=== PATIENT | male | born 1955 | race Caucasian/White ===

== ENCOUNTER 2019-02-13 09:39 | Emergency (ER) | payer MEDICARE ==
[~2019-02-13] VITALS: Ht 180.3 cm; Wt 138.2 kg
[~2019-02-13 09:39] MED LIST: AMARYL4 MG PO; BUMEX 1MG TA1 MG/TA1 PO; CEPHALEXIN500 M1 PO; COZAAR100 MG PO; GLUMETZA500 MG PO; HUMALOG100 U/ML SQ; K-DUR 2020 MEQ PO; LANTUS100 U/ML SC; NITROSTAT0.4 MG/TAB SL; NORCO 325 MG-51 TAB PO; PERCOCET 325 MG1 TA2 PO; TOPROL XL 50MG50 MG PO; VASOTEC 5MG5 MG/TAB PO; ZOCOR 20MG20 MG PO
[2019-02-13 09:46] VITALS: BP 108/59; TEMP 98.5
[2019-02-13] MEDS ORDERED: AMOXICILLIN 8751 TAB PO (09:58)
[2019-02-13 10:08] VITALS: PULSE 89
== END 2019-02-13 10:07 | disposition home or self-care (01) ==
LOC: COL.ER 09:39
DX: K02.9 Dental caries, unspecified (principal); K04.7 Periapical abscess without sinus; I10 Essential (primary) hypertension; E11.9 Type 2 diabetes mellitus without complications; Z79.4 Long term (current) use of insulin; Z86.73 Personal history of transient ischemic attack (TIA), and cerebral infarction without residual deficits

== ENCOUNTER 2019-11-20 09:38 | Emergency (ER) | payer MEDICARE ==
[~2019-11-20] VITALS: Ht 180.3 cm; Wt 134.1 kg
[~2019-11-20 09:38] MED LIST changes: +AMOXICILLIN 8751 TAB PO
[2019-11-20 09:45] VITALS: TEMP 97.5
[2019-11-20] MEDS ORDERED: AMOXICILLIN 8751 TAB PO (09:54)
[2019-11-20 10:02] VITALS: BP 115/73; PULSE 83
== END 2019-11-20 10:00 | disposition home or self-care (01) ==
LOC: COL.ER 09:38
DX: K02.9 Dental caries, unspecified (principal); E11.9 Type 2 diabetes mellitus without complications; I10 Essential (primary) hypertension; Z79.4 Long term (current) use of insulin; Z86.73 Personal history of transient ischemic attack (TIA), and cerebral infarction without residual deficits

== ENCOUNTER 2020-07-17 14:51 | Inpatient (IN) | payer MEDICARE ==
[~2020-07-17] VITALS: Ht 180.3 cm; Wt 139.4 kg
[~2020-07-17 14:51] MED LIST changes: -BUMEX 1MG TA1 MG/TA1 PO
[2020-07-17 15:43] LABS: BASO # 0.1 (0.0-0.2); BASO % 0.8 % (0.0-2.0); EOS # 0.1 (0.0-0.7); EOS % 1.2 % (0-4.0); GRAN # 7.2 (1.4-6.5); GRAN % 67.7 % (42.2-75.2); HEMATOCRIT 41.2 % (42.0-52.0); LYMPH # 1.9 (1.2-3.4); MEAN CELL VOLUME 90 fl (80.0-100.0); MEAN CORPUSCULAR HEMOGLOBIN 28 pg (27.0-31.0); MEAN CORPUSCULAR HGB CONC 32 g/dl (33.0-37.0); MEAN PLATELET VOLUME 12.1 fl (7.4-10.4); MONO # 1.3 (0.1-0.6); MONO % 11.9 % (1.7-9.3); PLATELET COUNT 183 K/mm3 (130-400); RED BLOOD COUNT 4.59 M/mm3 (4.20-5.60); REDCELL DISTRIBUTION WIDTH-CV 15.4 % (11.5-14.5)
[2020-07-17 15:48] LABS: ALBUMIN 3.8 gm/dL (3.5-5.0); BILIRUBIN,TOTAL 1.8 mg/dL (0.0-1.0); C-REACTIVE PROTEIN 3.4 mg/dL (0.0-0.9); CALCIUM 9.2 mg/dL (8.4-10.2); CREATININE, serum 1.64 (0.66-1.25); POTASSIUM 3.3 mmol/L (3.4-5.0); TOTAL PROTEIN 7.6 gm/dL (6.4-8.2)
[2020-07-17] MEDS ORDERED: LEVEMIR100 U/ML SQ (17:33)
[2020-07-17] MEDS ORDERED: NOVOLOG 100U100 U/M1 SQ (17:34)
[2020-07-17] MEDS ORDERED: LIPITOR 10MG10 MG PO (17:37)
[2020-07-17 17:55] VITALS: BP 92/55; PULSE 81; TEMP 98.3
--- NOTE | 2020-07-17 19:19 | NUR ---
Patient admitted from the ED for cellulitis in the LLE and GA. Report recieved from ABDIRASHID Williamson. Upon initial assessment normal S1 and S2 sounds present, lungs were clear to auscultation, pedal and radial pulses +2 equal bilaterally, patient A&O. No skin issues noted besides cellulitis located on LLE. Superficial wound measures 13" x 11". Patient does not currently report any pain or discomfort. Scheduled meds given. Patient was unable to swallow pottasium pills, stated that he didn't need them. Will be recieving K+ replacement via IV. Patient denies any further needs at this time. Bedside report given to ABDIRASHID Tony. Call light within reach.
--- NOTE | 2020-07-17 22:24 | NUR ---
Noted to have a bedside glucose of 93. Novolog held. Jason given-refused a snack states "I will be just fine without one, if I notice its dropping I will call." Call light in reach. Will monitor.
[2020-07-18] VITALS (7 sets, daily range): BP systolic 87–122; BP diastolic 53–87; PULSE 72–93; TEMP 97.3–98.6
--- NOTE | 2020-07-18 01:08 | NUR ---
IV INFILTRATED TO LEFT HAND, REMOVED. ELEVATED ON PILLOW. RESTART TO RIGHT HAND 20G. IV FLUIDS AND ANTIBOTICS RESTARTED.
--- NOTE | 2020-07-18 01:57 | NUR ---
2100- ASSESSMENT COMPLETE. IV INFILTRATED TO LT HAND , RESTART TO RT HAND. FLUIDS AND ANTIBOTICS CONTINUE. CELLULITIS TO LEFT ROSEN. C/O PAIN 10/14, OCYCODONE GIVEN. NEEDS MET.
--- NOTE | 2020-07-18 05:31 | NUR ---
RESTED THROUGH THE NIGHT WO INCIDENT. NEEDS MET.
[2020-07-18 07:06] LABS: HEMATOCRIT 43.4 % (42.0-52.0); HEMOGLOBIN 13.5 g/dl (13.5-18.0); MEAN CELL VOLUME 93 fl (80.0-100.0); MEAN CORPUSCULAR HEMOGLOBIN 29 pg (27.0-31.0); MEAN CORPUSCULAR HGB CONC 31 g/dl (33.0-37.0); MEAN PLATELET VOLUME 12.2 fl (7.4-10.4); PLATELET COUNT 188 K/mm3 (130-400); RED BLOOD COUNT 4.68 M/mm3 (4.20-5.60); REDCELL DISTRIBUTION WIDTH-CV 15.6 % (11.5-14.5)
[2020-07-18 07:20] LABS: CREATININE, serum 1.72 (0.66-1.25); MAGNESIUM 1.9 mg/dL (1.6-2.3)
[2020-07-18 07:27] LABS: POTASSIUM 2.8 mmol/L (3.4-5.0)
[2020-07-18 07:33] LABS: BAND 5 % (0-10); BURR CELLS 1+; LYMPHOCYTE 13 % (20.0-51.0); NEUTROPHILS 75 % (42.0-75.2)
[2020-07-18 07:34] LABS: PLATELET ESTIMATE NORMAL (NORMAL)
--- NOTE | 2020-07-18 08:00 | NUR ---
Shift assessment complete. A&Ox4. Heart RRR. Lungs CTA. 2+ edema to BLE, 1+ edema to left hand. Softball sized superfical lesion to left john, open to air. Wound bed pink and moist. Denies pain or other concerns at this time. Call light in reach. Continuing to monitor.
--- NOTE | 2020-07-18 10:03 | NUR ---
SW met with the patient to discuss discharge plan. The patient lives in [place] with his , Niharika (ph#[phone]). He reports independence with ADLs and does not have any DME. The patient's PCP is Dr. Haylee Reyes at the [facility] and he receives his medications from [facility]. He reports no difficulties obtaining his meds. The patient does not have a DPOA-HC in EMR, but he states that he does have one completed and that it designates his . He states that the document is at home. The patient plans to return home with his upon discharge. SW to follow as needed. *Discharge plan: home with *
--- NOTE | 2020-07-18 18:36 | NUR ---
Uneventful day. Showered independently this afternoon. Reports increased pain to left lower leg wound following assessment by . Minimal pain relief from PO oxycodone and tramadol, Mell SHOEMAKER notified. LLE placed in Unna boot per orders. K+ up to 4.1 this afternoon following replacement. Blood sugars stable since this AM. Report given to crepe machine operator RN.
[2020-07-19 04:35] VITALS: BP 96/75; PULSE 82; TEMP 97.7
[2020-07-19 04:53] LABS: BASO # 0.1 (0.0-0.2); BASO % 0.8 % (0.0-2.0); EOS # 0.1 (0.0-0.7); EOS % 1.2 % (0-4.0); GRAN # 7.2 (1.4-6.5); GRAN % 67.7 % (42.2-75.2); HEMATOCRIT 42.9 % (42.0-52.0); HEMOGLOBIN 13.2 g/dl (13.5-18.0); LYMPH # 1.8 (1.2-3.4); LYMPH % 16.5 % (20.0-51.0); MEAN CELL VOLUME 92 fl (80.0-100.0); MEAN CORPUSCULAR HEMOGLOBIN 28 pg (27.0-31.0); MEAN CORPUSCULAR HGB CONC 31 g/dl (33.0-37.0); MONO # 1.4 (0.1-0.6); MONO % 13.3 % (1.7-9.3); PLATELET COUNT 184 K/mm3 (130-400); RED BLOOD COUNT 4.67 M/mm3 (4.20-5.60)
[2020-07-19 05:08] LABS: ALBUMIN 3.5 gm/dL (3.5-5.0); CREATININE, serum 1.82 (0.66-1.25); MAGNESIUM 2.1 mg/dL (1.6-2.3); POTASSIUM 4.4 mmol/L (3.4-5.0); TOTAL PROTEIN 6.9 gm/dL (6.4-8.2)
--- NOTE | 2020-07-19 05:39 | NUR ---
RESTED THROUGH THE NIGHT WO INCIDENT. ROXICODONE WORKING FOR PAIN. NEEDS MET.
[2020-07-19 08:00] VITALS: BP 162/70; PULSE 68; TEMP 99.1
[2020-07-19 08:13] VITALS: BP 109/72; PULSE 85; TEMP 98.5
--- NOTE | 2020-07-19 08:16 | NUR ---
PT IS LAYING IN BED AT THIS TIME. STUDENT NURSE, REENA WILL BE ASSISTING WITH PATIENT CARE TODAY. THE PATIENT HAS MOMENTS OF INAPPROPRIATE BEHAVIOR. VERY SEXUAL IN NATURE, WANTING TO DISCUSS HIS ERECTILE DISFUNCTION. PATIENT STATES HE PREFERS TO BE NAKED, THIS RN ENCOURAGED THE USE OF A GOWN WHILE HE IS HERE. HIS PAIN IS A 9/10. PT DID ASK FOR ROXICODONE AND STATES THAT HE WOULD LIKE ME TO WRITE THE LAST GIVEN TIME ON THE BOARD SO HE CAN GET HIS PAIN MEDICATIONS "ON TIME". THERE ARE NO OTHER CONCERNS AT THIS TIME. CALL LIGHT WITHIN REACH.
[2020-07-19] MEDS ORDERED: DOXYCYCLINE HY100 MG PO (09:23)
[2020-07-19] MEDS ORDERED: ROXICODONE 55 MG/TAB PO (09:24)
[2020-07-19] MEDS ORDERED: ZOFRAN 4MG T4 MG/TAB PO (09:34)
--- NOTE | 2020-07-19 11:50 | NUR ---
Patient has been resting in bed since shift change. Upon entering the room patient was naked and requested a clean gown. Patient made a few sexually inappropriate comments regarding himself and his erectile dysfunction. Otherwise he was very cooperative with taking his medications. He did complain of pain in his left lower leg where the cellulitis is present.
[2020-07-19 11:52] VITALS: BP 102/62; PULSE 87; TEMP 98
--- NOTE | 2020-07-19 11:57 | NUR ---
PT'S BLOOD SUGAR IS CURRENTLY 60. WILL GIVE PATIENT SOME JUICE AND RECHECK. NO FURTHER CONCERNS AT THIS TIME.
--- NOTE | 2020-07-19 12:22 | NUR ---
PT DRESSED, AND READY FOR DISCHARGE. ANALYA CATINAOT RECEIVED FROM PHARMACY, WILL PUT UNNA BOOT ON, AND THEN CONTINUE WITH DISCHARGE. PT WILL CONTACT SON, AND WE WILL WALK HIM OUT. NO FURTHER CONCERNS AT THIS TIME.
== END 2020-07-19 16:00 | disposition home or self-care (01) | DRG 603 ==
LOC: COL.ER 14:51 → MEDICAL 16:23
PROVIDERS: Nurse Practitioner; Physician Assistant; ADMIT Internal Medicine
DX: L03.116 Cellulitis of left lower limb (principal); Z68.41 Body mass index [BMI] 40.0-44.9, adult; N17.9 Acute kidney failure, unspecified; L97.829 Non-pressure chronic ulcer of other part of left lower leg with unspecified severity; I83.028 Varicose veins of left lower extremity with ulcer other part of lower leg; E11.649 Type 2 diabetes mellitus with hypoglycemia without coma; E11.22 Type 2 diabetes mellitus with diabetic chronic kidney disease; I50.9 Heart failure, unspecified; I25.10 Atherosclerotic heart disease of native coronary artery without angina pectoris; E87.6 Hypokalemia; N18.9 Chronic kidney disease, unspecified; I25.2 Old myocardial infarction; E66.01 Morbid (severe) obesity due to excess calories; R52 Pain, unspecified; R53.81 Other malaise; Z79.4 Long term (current) use of insulin; Z79.891 Long term (current) use of opiate analgesic; Z86.73 Personal history of transient ischemic attack (TIA), and cerebral infarction without residual deficits; Z87.891 Personal history of nicotine dependence; Z88.8 Allergy status to other drugs, medicaments and biological substances
CPT/HCPCS: 99222-AI; 99232-AI; 99239; J1644; J1815; J2270; J2405; J2543; J3370; J3475; J3480; J7030; J7040; J7050

== ENCOUNTER 2020-08-15 09:22 | Inpatient (IN) | payer MEDICARE ==
[~2020-08-15] VITALS: Ht 180.3 cm; Wt 145.3 kg
[~2020-08-15 09:22] MED LIST changes: +DOXYCYCLINE HY100 MG PO; +LEVEMIR100 U/ML SQ; +LIPITOR 10MG10 MG PO; +NOVOLOG 100U100 U/M1 SQ; +ROXICODONE 55 MG/TAB PO; +ZOFRAN 4MG T4 MG/TAB PO
[2020-08-15 11:12] LABS: INR 1.3 (0.8-3.0); PROTHROMBIN TIME 14.9 SECONDS (9.7-12.8)
[2020-08-15 11:14] LABS: BASO # 0.1 (0.0-0.2); BASO % 0.9 % (0.0-2.0); EOS # 0.1 (0.0-0.7); EOS % 1.2 % (0-4.0); GRAN # 6.5 (1.4-6.5); GRAN % 69.9 % (42.2-75.2); HEMATOCRIT 43.5 % (42.0-52.0); HEMOGLOBIN 13.6 g/dl (13.5-18.0); LYMPH # 1.4 (1.2-3.4); LYMPH % 14.7 % (20.0-51.0); MEAN CELL VOLUME 88 fl (80.0-100.0); MEAN CORPUSCULAR HEMOGLOBIN 27 pg (27.0-31.0); MEAN CORPUSCULAR HGB CONC 31 g/dl (33.0-37.0); MONO # 1.2 (0.1-0.6); MONO % 12.8 % (1.7-9.3); PLATELET COUNT 200 K/mm3 (130-400); RED BLOOD COUNT 4.97 M/mm3 (4.20-5.60)
[2020-08-15 11:19] LABS: ALBUMIN 3.6 gm/dL (3.5-5.0); BILIRUBIN,TOTAL 2.8 mg/dL (0.0-1.0); C-REACTIVE PROTEIN 1.3 mg/dL (0.0-0.9); CALCIUM 8.8 mg/dL (8.4-10.2); CREATININE, serum 2.21 (0.66-1.25); POTASSIUM 3.3 mmol/L (3.4-5.0); TOTAL PROTEIN 7.3 gm/dL (6.4-8.2)
[2020-08-15 11:37] LABS: TROPONIN-I 0.105 ng/mL (0.000-0.035)
[2020-08-15] MEDS ORDERED: LIPITOR 40MG TA40 MG PO (13:38)
[2020-08-15] MEDS ORDERED: COZAAR100 MG PO (13:43)
--- NOTE | 2020-08-15 14:05 | NUR ---
PATIENT ARRIVED TO ROOM 348 VIA CART FROM ED. PATIENT SETTELED INTO ROOM. CALL LIGHT WITHIN REACH. SAHARA HICKMAN CALLED AND NOTIFIED OF PATIENT ARRIVAL TO FLOOR.
[2020-08-15 14:50] VITALS: BP 117/91; PULSE 101; TEMP 98.4
[2020-08-15] MEDS ORDERED: ASPIRIN 81M81 MG/TA2 PO (15:27)
--- NOTE | 2020-08-15 15:40 | NUR ---
PATIENT ADMISSION COMPLETE. MED REC REVIEWED AND UPDATED.
--- NOTE | 2020-08-15 15:59 | NUR ---
Vancomycin Initial Dosing Pharmacy Note Ordering provider: Kevan Lisa MD Indication/duration: L-john ulcer/foot wounds and cellulitis LABS: SCr 2.21, CrCl~46, GFR 30 Recommendation: Will give Vancomycin 2 gm IV x1 loading dose, then Vancomycin 1.5 gm IV q24h. Pharmacy will continue to montior and order Vancomycin trough when renal function returns to baseline. Loading dose: 2 grams Maintenance dose: 1.5 grams every 24 hours Trough goal: 10-15 ug/mL
--- NOTE | 2020-08-15 16:01 | NUR ---
CRITICAL TROPONIN OF 0.048 CALLED TO SAHARA HICKMAN. NO ADDITIONAL ORDERS AT THIS TIME.
[2020-08-15 17:22] LABS: PARTIAL THROMBOPLASTIN TIME 33.4 SECONDS (26.0-37.0)
--- NOTE | 2020-08-15 17:51 | NUR ---
CALLED AND NOTIFIED OF CRITICAL TROPONIN RESULT OF 0.039. NO ORDERS GIVEN AT THIS TIME.
--- NOTE | 2020-08-15 18:08 | NUR ---
HEPARIN DRIP STARTED PER ORDERS. NEXT HEPXA DRAW AT 0015 ON 08/16/20. PATIENT REPORTING PAIN IN THE FOOT RATED A 6/10. PATIENT GIVEN PRN PO OXYCODONE. WILL REPORT OFF TO ONCOMING NURSE.
[2020-08-15 21:08] VITALS: BP 112/62; PULSE 88; TEMP 97.7
--- NOTE | 2020-08-15 21:30 | NUR ---
PT IN BED, CLEANSED PTS LEFT LOWER LEG AND FOOT WITH SOAP/WATER, DRESSED TOES AND LEFT LOWER LEG WOUND WITH TELFA AND KERLIX. HS MEDS GIVEN. HAS RT PICC WITH HEPARIN GTT INFUSING AT 10CC/HR.
[2020-08-16] VITALS (8 sets, daily range): BP systolic 89–111; BP diastolic 53–76; PULSE 75–130; TEMP 97.6–98.1
--- NOTE | 2020-08-16 00:30 | NUR ---
HEP XA=0.16, CHANGED RATE TO 11.5CC/HR. OXYCODONE 5MG PO GIVEN FOR LEG PAIN.
--- NOTE | 2020-08-16 06:00 | NUR ---
LABS OBTAINED FROM PIC. PT OFFERS NO COMPLAINTS.
[2020-08-16 07:21] LABS: BASO # 0.1 (0.0-0.2); BASO % 1.2 % (0.0-2.0); EOS # 0.2 (0.0-0.7); EOS % 1.9 % (0-4.0); GRAN # 4.9 (1.4-6.5); GRAN % 62.3 % (42.2-75.2); HEMOGLOBIN 12.5 g/dl (13.5-18.0); LYMPH # 1.6 (1.2-3.4); LYMPH % 20.7 % (20.0-51.0); MEAN CELL VOLUME 88 fl (80.0-100.0); MEAN CORPUSCULAR HEMOGLOBIN 27 pg (27.0-31.0); MEAN CORPUSCULAR HGB CONC 31 g/dl (33.0-37.0); MEAN PLATELET VOLUME 12.5 fl (7.4-10.4); MONO # 1.1 (0.1-0.6); MONO % 13.6 % (1.7-9.3); PLATELET COUNT 173 K/mm3 (130-400); RED BLOOD COUNT 4.56 M/mm3 (4.20-5.60); REDCELL DISTRIBUTION WIDTH-CV 16.1 % (11.5-14.5)
[2020-08-16 07:32] LABS: CALCIUM 8.4 mg/dL (8.4-10.2); CREATININE, serum 1.68 (0.66-1.25)
[2020-08-16 07:47] LABS: TROPONIN-I 0.059 ng/mL (0.000-0.035)
--- NOTE | 2020-08-16 09:09 | NUR ---
SB met with the patient to discuss discharge plan. The patient lives in [place] with his , Niharika (ph#[phone]). He states that his is in [place] until October to help out with a grandchild. He reports independence with ADLs and has a cane and walker. The patient's PCP is Dr. Haylee Reyes at the [facility] and he receives his medications at [facility]. He reports no difficulties obtaining his meds. He receives wound care at the wound care clinic in [place]. The patient plans to return home upon discharge. He states that his son, Silver (ph#[phone]), will transport him home. SW discussed home health services and their benefits. The patient states that he is not sure if he is interested in services at this time. He would like to see how he feels before d/c. SW to follow as needed. *Discharge plan: home*
--- NOTE | 2020-08-16 10:40 | NUR ---
Initial visit; Patient thanked Bow Rehairer for looking in on him and keeping him in Bow Rehairer's prayers.
--- NOTE | 2020-08-16 11:30 | NUR ---
Patient has been doing well this morning. The large blister to his left foot that goes from the toes and wraps to the interior part his heel. Light yellow drainage noted to the gauze. His toes on the left foot also have open draining wounds. He has several blisters to his right foot/toes as well. The blisters are intact. No drainage. His left john is dry, flaking and discolored. There is an open blister in the center of the left john. Bright red bloody drainage from the site. Right john has a dime sized blister to it, intact, no drainage. Patient denies nausea. Stated only having pain when standing or feet or down. Dr Nation seen patient and ordered EKG because he is tachy. Explained his heart rate jumps up everytime he stands or does any activity. She adjusted his amiodarone. No other changes at this time. Call light within reach.
--- NOTE | 2020-08-16 17:30 | NUR ---
Changed patients dressing this afternoon. Placed non-stick gauze, abd pads, wrapped with gauze fluff roll and sedrick wrap. Helped him up to the chair this afternoon and he stated he is much more comfortable. His heparin was adjusted once this afternoon. Pain controlled with roxicodone. No complaints of nausea. He finished his potassium replacement this afternoon, next lab check ordered for 1999. No other changes at this time. Call light within reach.
--- NOTE | 2020-08-16 20:00 | NUR ---
Pt. sitting up in chair at this time. Pt. is a&OX3, assessment complete. PICC to rt. upperarm patent, Heparin gtt running per orders at this time. HepXa WNL at this time. No rate change needed. Dressing to lt. foot CDI at this time. Several blisters intact noted to rt. foot also. Pt. reports pain to feet at a 5 on pain scale, will give pain meds when available. Pt. denies further needs, call light within reach.
[2020-08-17 04:00] VITALS: BP 94/59; PULSE 93; TEMP 97.6
[2020-08-17 05:59] LABS: BASO # 0.1 (0.0-0.2); BASO % 1.1 % (0.0-2.0); EOS # 0.2 (0.0-0.7); EOS % 2.3 % (0-4.0); GRAN # 4.5 (1.4-6.5); GRAN % 56.4 % (42.2-75.2); HEMATOCRIT 41.3 % (42.0-52.0); LYMPH % 24.4 % (20.0-51.0); MEAN CELL VOLUME 86 fl (80.0-100.0); MEAN CORPUSCULAR HEMOGLOBIN 27 pg (27.0-31.0); MEAN CORPUSCULAR HGB CONC 32 g/dl (33.0-37.0); MEAN PLATELET VOLUME 12.4 fl (7.4-10.4); MONO # 1.2 (0.1-0.6); MONO % 15.4 % (1.7-9.3); PLATELET COUNT 187 K/mm3 (130-400); RED BLOOD COUNT 4.83 M/mm3 (4.20-5.60)
[2020-08-17 06:20] LABS: CALCIUM 8.4 mg/dL (8.4-10.2); CREATININE, serum 1.55 (0.66-1.25); MAGNESIUM 1.9 mg/dL (1.6-2.3)
[2020-08-17 06:21] LABS: POTASSIUM 3.4 mmol/L (3.4-5.0)
[2020-08-17 08:00] VITALS: BP 106/53; PULSE 83; TEMP 97.8
--- NOTE | 2020-08-17 08:00 | NUR ---
PATIENT IS A&O. VSS WITH TELE INPLACE. PATIENT REPORTS PAIN IN BLE IS BETTER, WINDSHIELD TECHNICIAN GAVE PRN PAIN MEDS BEFORE SHIFT CHANGE. PATIENT IS C/O FEELING SL NAUSEATED AFTER PAIN MEDS. CALL & GOT ORDER FOR IV ZOFRAN, GIVEN. NO EMESIS. PATIENT OTHERWISE TOLERATING ADA DIET WELL. AM BS WAS 101, NO SSI REQUIRED. HEP GTT INFUSING INTO RIGHT PICC. HEAD TO TOE ASSESSMENT COMPLETE. NOTED SEVERAL SKIN ISSUES, SEE SHIFT ASSESSMENT. AM MEDS GIVEN. MRI SCHEDULED FOR LATER TODAY, SEE ORDERS. NO OTHER NEEDS AT THIS TIME. CALL LIGHT IN REACH.
--- NOTE | 2020-08-17 11:00 | NUR ---
MRI HAD A CANCELATION AND WAS ABLE TO GET PATIENT DOWN EARLIER THAN PLANNED. TELE OFF AND IV DISCONNECTED. PATIENT OFF FLOOR.
[2020-08-17 12:00] VITALS: BP 108/68; PULSE 93; TEMP 98
--- NOTE | 2020-08-17 12:29 | NUR ---
MRI done without contrast per Dr. Dowell.
--- NOTE | 2020-08-17 12:34 | NUR ---
PATIENT NOW BACK IN ROOM FROM MRI. CARDIOLOGY AT BEDSIDE.
[2020-08-17 16:00] VITALS: BP 99/65; PULSE 92; TEMP 97.8
--- NOTE | 2020-08-17 16:35 | NUR ---
GAVE REPORT TO ABDIRASHID HALL WHO IS TAKING OVER THE PATIENT'S CARE.
[2020-08-17 19:58] VITALS: BP 100/68; PULSE 93; TEMP 98.1
[2020-08-18] VITALS (7 sets, daily range): BP systolic 85–115; BP diastolic 59–80; PULSE 87–97; TEMP 97.4–98.1
--- NOTE | 2020-08-18 06:02 | NUR ---
Awake, alert, oriented x 4, able to make needs known, redressed L leg wound - when removing dressing- blister across top of the foot ruptured- cleaned and redressed, telemetry in use, heparin gtt infusing- awaiting Hep XA lab at this time, tolerating diet w/o issue.
[2020-08-18 06:30] LABS: HEMATOCRIT 41.5 % (42.0-52.0); MEAN CELL VOLUME 87 fl (80.0-100.0); MEAN CORPUSCULAR HEMOGLOBIN 27 pg (27.0-31.0); MEAN CORPUSCULAR HGB CONC 31 g/dl (33.0-37.0); MEAN PLATELET VOLUME 12.8 fl (7.4-10.4); PLATELET COUNT 182 K/mm3 (130-400); RED BLOOD COUNT 4.76 M/mm3 (4.20-5.60); REDCELL DISTRIBUTION WIDTH-CV 16.1 % (11.5-14.5)
[2020-08-18 07:02] LABS: CALCIUM 8.5 mg/dL (8.4-10.2); CREATININE, serum 1.63 (0.66-1.25); POTASSIUM 3.8 mmol/L (3.4-5.0)
--- NOTE | 2020-08-18 09:26 | NUR ---
The PA notified SB that the patient is now thinking he would be interested in post-acute rehab. The hospitalist reports that he may be ready to d/c the patient later today or tomorrow. SB then met with the patient to review d/c plan. The patient's son, Silver, was on speaker phone. SB discussed post-acute rehab. PT has worked with the patient and recommend home health vs outpatient PT. SB informed the patient and his son of this. The patient reports that he would prefer to return home, but just in another day or two. SB informed the patient and his son, that if the patient is not feeling ready to go home yet, when medically stable, then they would need to look at options such at post-acute rehab. The patient reports that he would just prefer to return home and would be interested in home health. The patient's son was supportive of his decision and he reports that they will get everything set up for the patient at home. BS provided the patient with Medicare.gov's list of home health agencies that serve [place]. The patient was open to [facility]. SB contacted and faxed a referral to Sarah at [facility]. Awaiting screen. *Discharge plan: home with home health and family support*
--- NOTE | 2020-08-18 10:20 | NUR ---
Sarah, at [facility], reports that they are able to accept the patient for services.
--- NOTE | 2020-08-18 10:36 | NUR ---
The hospitalist notified SB that he will d/c the patient tomorrow. BS met with the patient to update. The patient was agreeable to the plan. SB updated Sarah at [facility]. SB contacted and updated the patient's son, Silver (ph#[phone]). Silver was also agreeable to the plan. The patient is to tentatively d/c tomorrow, 08/19, with home health services for nursing home/PT/OT from [facility]. SB will need to fax the patient's d/c orders to [facility].
--- NOTE | 2020-08-18 10:40 | NUR ---
Follow-up visit; Patient thanked Milanese Knitting Machine Operator for looking in on him again today and says he feels better and is more hopeful since he spoke with his physician. Milanese Knitting Machine Operator wished patient well and will keep him in her prayers.
--- NOTE | 2020-08-18 18:30 | NUR ---
Patient has been doing well today. He did not get up to the chair today. He showered this morning. Removed the dressing this morning when hosptialist rounded. Left the dressing off most the day because the open area to the bottom of his foot was wet and excoriated. He is hoping to discharge tomorrow. He continues to have a large blister to the top of his left foot. His toes on this left foot are red and excoriated with bloody dranage. Vasaline gauze placed to wounds on left foot per Dr Mesha samuel. The skin flap and reddened areas to left interior foot look better this evening than start of shift. Placed the vasline gauze to the blister, left interoir foot and left john. He continues to have the large red, dry flaking area to left john. Encouraged patient to stop picking at his skin because he keeps picking open scabbed areas. He still has several intact blisters to right toes, no open areas, no drainage. Dr Eden notified of consult. He changed the antibiotics. No other changes at this time. Call light within reach. Left foot elevated on pillows.
--- NOTE | 2020-08-18 22:00 | NUR ---
Pt. sitting up in bed. Pt. is A&OX3, assessment complete. PICC to rt. upper arm patent. Dressing to lt. foot CDI. rt. foot SATYA. Pt. reports pain at a 7 on pain scale, gave pain meds per orders. Pt. denies further needs, call light within reach.
[2020-08-19 04:49] VITALS: BP 104/67; PULSE 88; TEMP 97.7
[2020-08-19 06:34] LABS: HEMATOCRIT 40.7 % (42.0-52.0); HEMOGLOBIN 12.9 g/dl (13.5-18.0); MEAN CELL VOLUME 88 fl (80.0-100.0); MEAN CORPUSCULAR HEMOGLOBIN 28 pg (27.0-31.0); MEAN CORPUSCULAR HGB CONC 32 g/dl (33.0-37.0); MEAN PLATELET VOLUME 12.6 fl (7.4-10.4); PLATELET COUNT 181 K/mm3 (130-400); RED BLOOD COUNT 4.65 M/mm3 (4.20-5.60); REDCELL DISTRIBUTION WIDTH-CV 16.1 % (11.5-14.5)
[2020-08-19 09:00] VITALS: BP 107/86; PULSE 89; TEMP 97.8
--- NOTE | 2020-08-19 09:30 | NUR ---
Patient started having blood in his urine this am. Notified Dr Lowry, he consulted Dr Adams. He had 2 small clots his urine. He was dripping blood when he walked back from the bathroom. No complaints of pain or burning with urination. No complaints of pain or nausea this morning. Dressing to right foot C/D/I. His blister to his right ankle is larger today, no leaking yet but will most likely drain soon. He has more swelling to his right leg today as well. He is sitting up in the chair at this time. No other changes at this time. Call light within reach.
[2020-08-19 15:59] VITALS: BP 116/73; PULSE 92; TEMP 97.4
--- NOTE | 2020-08-19 18:30 | NUR ---
Patients urine is not as blood tinged today. Dr Adams wants to monitor his urine today. Possible cysto in AM. Patient is NPO after midnight. NO other changes at this time. Call light within reach.
[2020-08-19 19:01] LABS: COLLECTION METHOD CLEAN CATCH
[2020-08-19 19:09] LABS: MUCOUS Present /lpf; PH 5 (5-8); SQUAMOUS EPITHELIAL 0-2 /hpf; URINE APPEARANCE Hazy; URINE BACTERIA None Seen /hpf; URINE BILIRUBIN Negative (NEGATIVE); URINE BLOOD 2+ (NEGATIVE); URINE COLOR Amber; URINE GLUCOSE Negative (NEGATIVE); URINE KETONE Negative (NEGATIVE); URINE LEUKOCYTE ESTERASE Negative (NEGATIVE); URINE NITRATE Negative (NEGATIVE); URINE PROTEIN(semi-quant) 1+ (NEGATIVE); URINE RBC 20-50 /hpf; URINE UROBILINOGEN >=4.0 mg/dL (NEGATIVE)
--- NOTE | 2020-08-19 19:32 | NUR ---
Blister to rt. lateral ankle weeping at this time. Dressing applied. xeroform vasaline, abd, kyrlex and sedrick wrap. Pt. tolerated well.
--- NOTE | 2020-08-19 19:45 | NUR ---
Pt. sitting up in bed at this time. Pt. is A&OX3, assessment complete. Pt. reports pain at a 5 on pain scale at this time to BLE. Dressings to BLE CDI at this time. Pt. denies further needs, call light within reach.
[2020-08-19 19:53] VITALS: BP 109/66; PULSE 90; TEMP 98.1
[2020-08-20 00:18] VITALS: BP 107/74; PULSE 86; TEMP 98
[2020-08-20 04:41] VITALS: BP 108/73; PULSE 86; TEMP 97.5
[2020-08-20 06:42] LABS: BASO # 0.1 (0.0-0.2); BASO % 0.9 % (0.0-2.0); EOS # 0.1 (0.0-0.7); EOS % 1.1 % (0-4.0); GRAN # 6.8 (1.4-6.5); GRAN % 68.8 % (42.2-75.2); HEMATOCRIT 40.8 % (42.0-52.0); HEMOGLOBIN 12.9 g/dl (13.5-18.0); LYMPH # 1.5 (1.2-3.4); MEAN CELL VOLUME 87 fl (80.0-100.0); MEAN CORPUSCULAR HEMOGLOBIN 28 pg (27.0-31.0); MEAN CORPUSCULAR HGB CONC 32 g/dl (33.0-37.0); MEAN PLATELET VOLUME 12.8 fl (7.4-10.4); MONO # 1.4 (0.1-0.6); MONO % 13.8 % (1.7-9.3); PLATELET COUNT 165 K/mm3 (130-400); RED BLOOD COUNT 4.67 M/mm3 (4.20-5.60); REDCELL DISTRIBUTION WIDTH-CV 16.4 % (11.5-14.5)
--- NOTE | 2020-08-20 07:30 | NUR ---
Patient is sitting up in the chair. He is upset about not having anything to eat or drink. Explained as soon as Dr Adams gets here he will probably let him eat. His urine looks a lot better, than yesterday. Still sudarshan but not bloody. He denies pain and nausea. No other changes at this time. Call light within reach.
[2020-08-20 08:00] VITALS: BP 110/77; PULSE 86; TEMP 97.6
[2020-08-20] MEDS ORDERED: PACERONE400 MG PO (10:26)
--- NOTE | 2020-08-20 10:30 | NUR ---
Patient is discharging home. Explained that he can leave after orders are completed and we remove the PICC line. Talked about changing his dressings to his feet but they are C/D/I and he will be seeing the home health nurse tomorrow. Discussed how to keep dressings clean and dry. He verbalized understanding. No other changes at this time. Call light within reach.
[2020-08-20] MEDS ORDERED: KLOR-CON/EF25 MEQ PO (10:32)
[2020-08-20] MEDS ORDERED: DOXYCYCLINE 10100 MG PO (10:33)
[2020-08-20] MEDS ORDERED: CIPRO 500MG TA500 MG PO ×2 (10:33)
[2020-08-20] MEDS ORDERED: ROXICODONE 55 MG/TAB PO (10:34)
[2020-08-20] MEDS ORDERED: ZOFRAN 4MG T4 MG/TAB PO (10:34)
[2020-08-20 11:00] VITALS: BP 99/84; PULSE 93; TEMP 97.6
--- NOTE | 2020-08-20 12:09 | NUR ---
Faxed DC orders to [facility] at 12:09 p.m.
[2020-08-20] MEDS ORDERED: BUMEX 1MG TA1 MG/TA1 PO (12:10)
--- NOTE | 2020-08-20 13:00 | NUR ---
PICC line discontinued. PICC line removal intervention completed. Patient tolerated well. No issues removing catheter. Held pressure for 10 minutes. Had patient lay flat for 30mins. Patient is going to eat lunch and call his son for a ride. No other changes at this time. Call light within reach.
--- NOTE | 2020-08-20 14:30 | NUR ---
Patient is discharging home. Discharge instructions discussed with patient. NO questions verbalized. Explained he needs to make sure he makes his follow up appointments. He talked about exercising, I explained he needs to speak with his doctor before starting exercise due to his heart issues. He had questions about getting the cardiac stents. Explained that he should speak with his otolaryngology physician about it when he sees her and they can make a plan. Copies of discharge instructions sent with patient. He knows his prescriptions are waiting for him. All belongings packed up and sent with patient. Patient walked out via wheel chair by Courtney LEGER.
== END 2020-08-20 14:20 | disposition home health service (06) | DRG 637 ==
LOC: COL.ER 09:22 → SURG 12:28
PROVIDERS: Emergency Medicine; Internal Medicine; Internal Medicine Adult Congenital Heart Disease; Physician Assistant; ADMIT Hospitalist
PROC: 02HV33Z Insertion of Infusion Device into Superior Vena Cava, Percutaneous Approach (ICD-10-PCS; principal; 2020-08-15)
DX: E11.621 Type 2 diabetes mellitus with foot ulcer (principal); I21.A1 Myocardial infarction type 2; L97.429 Non-pressure chronic ulcer of left heel and midfoot with unspecified severity; L97.829 Non-pressure chronic ulcer of other part of left lower leg with unspecified severity; L97.529 Non-pressure chronic ulcer of other part of left foot with unspecified severity; Z79.4 Long term (current) use of insulin; E11.622 Type 2 diabetes mellitus with other skin ulcer; R31.9 Hematuria, unspecified; E86.1 Hypovolemia; I95.2 Hypotension due to drugs; T46.5X5A Adverse effect of other antihypertensive drugs, initial encounter; N17.9 Acute kidney failure, unspecified; N18.9 Chronic kidney disease, unspecified; I25.10 Atherosclerotic heart disease of native coronary artery without angina pectoris; I25.5 Ischemic cardiomyopathy; E87.6 Hypokalemia; E83.42 Hypomagnesemia; R94.31 Abnormal electrocardiogram [ECG] [EKG]; Z86.73 Personal history of transient ischemic attack (TIA), and cerebral infarction without residual deficits; E78.5 Hyperlipidemia, unspecified; R53.81 Other malaise; Z88.8 Allergy status to other drugs, medicaments and biological substances
CPT/HCPCS: 99223-AI; 99232-AI; 99233-AI; 99239; C1751; G0378; J0692; J0696; J1644; J1815; J2405; J3370; J3475; J7030; J7040; J7050

== ENCOUNTER 2020-08-24 17:10 | Inpatient (IN) | payer MEDICARE ==
[~2020-08-24] VITALS: Ht 180.3 cm; Wt 126.2 kg
[~2020-08-24 17:10] MED LIST changes: +ASPIRIN 81M81 MG/TA2 PO; +BUMEX 1MG TA1 MG/TA1 PO; +CIPRO 500MG TA500 MG PO; +DOXYCYCLINE 10100 MG PO; +KLOR-CON/EF25 MEQ PO; +LIPITOR 40MG TA40 MG PO; +PACERONE400 MG PO
[2020-08-24 18:28] LABS: BASO # 0.1 (0.0-0.2); BASO % 0.7 % (0.0-2.0); EOS # 0.1 (0.0-0.7); EOS % 1.2 % (0-4.0); GRAN # 6.4 (1.4-6.5); GRAN % 66.3 % (42.2-75.2); HEMATOCRIT 40.7 % (42.0-52.0); HEMOGLOBIN 13.1 g/dl (13.5-18.0); LYMPH # 1.6 (1.2-3.4); LYMPH % 16.6 % (20.0-51.0); MEAN CELL VOLUME 84 fl (80.0-100.0); MEAN CORPUSCULAR HEMOGLOBIN 27 pg (27.0-31.0); MEAN CORPUSCULAR HGB CONC 32 g/dl (33.0-37.0); MEAN PLATELET VOLUME 12.4 fl (7.4-10.4); MONO # 1.5 (0.1-0.6); MONO % 14.9 % (1.7-9.3); PLATELET COUNT 170 K/mm3 (130-400); RED BLOOD COUNT 4.85 M/mm3 (4.20-5.60); REDCELL DISTRIBUTION WIDTH-CV 16.2 % (11.5-14.5)
[2020-08-24 18:32] LABS: ALBUMIN 3.4 gm/dL (3.5-5.0); BILIRUBIN,TOTAL 3.2 mg/dL (0.0-1.0); CALCIUM 8.6 mg/dL (8.4-10.2); CREATININE, serum 1.78 (0.66-1.25); POTASSIUM 3.4 mmol/L (3.4-5.0); TOTAL PROTEIN 6.8 gm/dL (6.4-8.2)
[2020-08-24 21:51] LABS: COLLECTION METHOD CLEAN CATCH
[2020-08-24 22:12] LABS: MUCOUS Present /lpf; PH 5 (5-8); URINE APPEARANCE Hazy; URINE BACTERIA Rare /hpf; URINE BILIRUBIN Negative (NEGATIVE); URINE BLOOD Negative (NEGATIVE); URINE COLOR Amber; URINE GLUCOSE Negative (NEGATIVE); URINE KETONE Negative (NEGATIVE); URINE LEUKOCYTE ESTERASE Negative (NEGATIVE); URINE NITRATE Negative (NEGATIVE); URINE PROTEIN(semi-quant) 1+ (NEGATIVE); URINE RBC 0-2 /hpf; URINE UROBILINOGEN >=4.0 mg/dL (NEGATIVE)
[2020-08-25 00:58] VITALS: BP 112/69; BP 126/86; BP 130/79; PULSE 100; PULSE 81; PULSE 91
--- NOTE | 2020-08-25 02:17 | NUR ---
PATIENT TO ROOM PER WHEELCHAIR W/ED PCT PRESENT. PATIENT WALKED SHORT DISTANCE AROUND BED FROM W/C TO RECLINER CHAIR AFTER REFUSING TO LAY IN HOSP BED DUE TO DISCOMFORT TO BACK AFTER LAYING IN ED CART "FOR 6 HRS".
[2020-08-25 02:45] LABS: C-REACTIVE PROTEIN 2.4 mg/dL (0.0-0.9); MAGNESIUM 1.6 mg/dL (1.6-2.3); PHOSPHOROUS 3.3 mg/dL (2.5-4.5)
--- NOTE | 2020-08-25 03:00 | NUR ---
PATIENT REPORTS HE WOULD LIKE "A SHINGLES SHOT" WHEN AVAILABLE BUT STATED HE DID NOT NEED TO GET IT DONE RIGHT AWAY.
[2020-08-25 03:13] LABS: THYROID STIMULATING HORMONE 2.86 uIU/mL (0.465-4.680)
--- NOTE | 2020-08-25 03:30 | NUR ---
L ROSEN SEVERAL WEEPING/SCABBED AREAS OF LIGHT RED DRAINAGE. REDNESS TO RIGHT ROSEN&INNER RIGHT CALF AREA WITH SEVERAL SCATTERED DISCOLORED SPOTS WITH SOME INTACT DARK COLORED SCABS. PRIMITIVO HEELS AREA BOGGY AND RIGHT HEEL FAINT DARK DISCOLORATION WITH VERY DRY SKIN.
--- NOTE | 2020-08-25 07:19 | NUR ---
CHANGE OF SHIFT REPORT GIVEN TO DAY SHIFT NURSE, JELENA MENDENHALL.
[2020-08-25 07:32] VITALS: BP 97/67; PULSE 87; TEMP 97.8
--- NOTE | 2020-08-25 09:40 | NUR ---
Shift assessment complete. Pt assisted to restroom SBA and up to recliner. Urine red, pt reports first noticed this about a week ago. Notified during morning rounds, heparin held at this time. A&Ox4. Heart RRR. Lungs CTA. Reports mild SOA w/exertion. 3+ edema to BLE. Large blister to left john, ulcers to outsides of bilateral great toes, large open blister over top of left foot wraps around side and across bottom of foot, large open blister to back of right heel/ankle. All wounds covered by nonadherent pads and wrapped with gauze/sedrick wrap. BLE elevated on pillows. Pt reports pain to wounds, roxicodone given per orders. Call light in reach.
--- NOTE | 2020-08-25 10:17 | NUR ---
Strategic Account Manager attended clinical rounds with the team. The patient is a readmission. Hospitalist discussed readmission. The patient has been taking his medications as prescribed. The patient has had three vistors from home health. PT/OT and the person who did the evaluation. The patient has not had a follow up with his PCP but states he visited the wound clinic on 08/24. The patient plans to return home with spouse and [facility] [place]Note 2]. The patient reports his spouse is on the way back from [place].
[2020-08-25 11:05] VITALS: BP 104/70; PULSE 84; TEMP 97.6
--- NOTE | 2020-08-25 15:55 | NUR ---
Sales And Production Manager faxed clinical updates to [facility].
--- NOTE | 2020-08-25 16:15 | NUR ---
Social Work Therapist met with the patient to complete intake. The patient lives in [place] with his . The patient's PCP is Dr. Haylee Reyes from [place] and patient receives medications from [facility] in [place]. The patient has a walker, cane, shower chair and states his shower is accessible. The patient's will return from [place] this day and will transport the patient at discharge. *Discharge disposition: Home with spouse and [facility]. PT/OT/[facility]
[2020-08-25 16:28] VITALS: BP 119/75; PULSE 94; TEMP 97.4
[2020-08-25 16:38] LABS: COLLECTION METHOD CLEAN CATCH
[2020-08-25 16:49] LABS: MUCOUS Present /lpf; PH 5 (5-8); SQUAMOUS EPITHELIAL 0-2 /hpf; URINE APPEARANCE Clear; URINE BACTERIA None Seen /hpf; URINE BILIRUBIN Negative (NEGATIVE); URINE BLOOD 3+ (NEGATIVE); URINE COLOR Yellow; URINE GLUCOSE Negative (NEGATIVE); URINE KETONE Negative (NEGATIVE); URINE LEUKOCYTE ESTERASE Negative (NEGATIVE); URINE NITRATE Negative (NEGATIVE); URINE PROTEIN(semi-quant) Negative (NEGATIVE); URINE RBC >50 /hpf; URINE UROBILINOGEN >=4.0 mg/dL (NEGATIVE)
[2020-08-25 19:04] VITALS: BP 104/68; PULSE 86; TEMP 98.3
--- NOTE | 2020-08-25 22:14 | NUR ---
Patient laying in bed and watching TV upon enter the room. Patient alert and oriented. Patient denies any chest pain, SOB, N/V, or dizziness. Patient reports some pain to his bilateral lower extremities. BLE +3 pitting edemas. Bilateral foot covered with sedrick wrap/kerlix. Dressing C/D/I at this time. All scheduled meds given per JUN. Call light within reach. Patient denies any needs at this time.
[2020-08-25 23:34] VITALS: BP 107/70; PULSE 93; TEMP 97.9
[2020-08-26 03:19] VITALS: BP 100/66; PULSE 92; TEMP 97.9
--- NOTE | 2020-08-26 05:05 | NUR ---
Received phone call from Tele regarding patient is having A-fib on Tele monitor. Called hospitalist Clint Lorenzo to received order for EKG. Patient sitting up in chair. Patient alert and oriented. Denies chest pain. Will coninue to monitor.
[2020-08-26 06:37] LABS: CALCIUM 8.8 mg/dL (8.4-10.2); CHOLESTEROL RISK RATIO 7.2; CREATININE, serum 1.68 (0.66-1.25); POTASSIUM 3.3 mmol/L (3.4-5.0)
[2020-08-26 08:13] VITALS: BP 98/63; PULSE 92; TEMP 97.6
[2020-08-26 11:29] VITALS: BP 102/75; PULSE 93; TEMP 97.8
--- NOTE | 2020-08-26 12:06 | NUR ---
Assessment completed, alert/oriented, vital signs stable, denies pain or discomfort, he reporst voiding urine well over night / however nursing staff was not documenting accurate I/O, I have advised him at this time to start using urinal and to notify us each time he goes so we can measure his output, he verbalized understanding, heart RRR/ PAC's on tele, lungs CTA/ diminished lower lobes, denies any resp.difficulty or SOA, blood sugars being controlled, his lower extrm. wounds are wrapped/dressed and are C/D/I at this time, will do dressings PRN, he denies other needs, will continue to monitor
[2020-08-26 16:49] VITALS: BP 109/74; PULSE 90; TEMP 97.7
[2020-08-26 20:16] VITALS: BP 104/63; PULSE 91; TEMP 97.5
[2020-08-27 00:04] VITALS: BP 108/67; PULSE 88; TEMP 97.3
[2020-08-27 03:14] VITALS: BP 90/59; PULSE 89; TEMP 97.5
--- NOTE | 2020-08-27 05:03 | NUR ---
PT HAD UNEVENTFUL NIGHT, SLEPT ON AND OFF THROUGH OUT NIGHT. SOFT BP'S RECORDED.PT ASYMPTOMATIC. PT DENIES N/V/D, BILAT LEGS ELEVATED. PT EXPRESSES NO ADDITIONAL NEEDS AT THIS TIME. CALL LIGHT WITHIN REACH.
[2020-08-27 06:26] LABS: BASO # 0.1 (0.0-0.2); BASO % 0.9 % (0.0-2.0); EOS # 0.2 (0.0-0.7); EOS % 2.8 % (0-4.0); GRAN # 5.2 (1.4-6.5); GRAN % 65.1 % (42.2-75.2); HEMATOCRIT 40.7 % (42.0-52.0); HEMOGLOBIN 12.8 g/dl (13.5-18.0); LYMPH # 1.3 (1.2-3.4); LYMPH % 16.6 % (20.0-51.0); MEAN CELL VOLUME 87 fl (80.0-100.0); MEAN CORPUSCULAR HEMOGLOBIN 27 pg (27.0-31.0); MEAN CORPUSCULAR HGB CONC 31 g/dl (33.0-37.0); MEAN PLATELET VOLUME 12.5 fl (7.4-10.4); MONO # 1.1 (0.1-0.6); MONO % 14.2 % (1.7-9.3); PLATELET COUNT 167 K/mm3 (130-400); RED BLOOD COUNT 4.68 M/mm3 (4.20-5.60); REDCELL DISTRIBUTION WIDTH-CV 16.6 % (11.5-14.5)
[2020-08-27 06:47] LABS: ALBUMIN 3.2 gm/dL (3.5-5.0); CALCIUM 8.5 mg/dL (8.4-10.2); CREATININE, serum 1.58 (0.66-1.25); POTASSIUM 3.6 mmol/L (3.4-5.0); TOTAL PROTEIN 6.8 gm/dL (6.4-8.2)
[2020-08-27 08:20] VITALS: BP 99/66; PULSE 86; TEMP 97.6
[2020-08-27 11:19] VITALS: BP 105/63; PULSE 87; TEMP 97.5
[2020-08-27 16:43] VITALS: BP 104/69; PULSE 88; TEMP 97.8
[2020-08-27 19:25] VITALS: BP 109/71; PULSE 91; TEMP 97.9
--- NOTE | 2020-08-27 20:00 | NUR ---
Bedside shift report received, assumed care for car shifter. Assessment complete. VS stable. A&Ox3-drowsy. Denies pain/nausea/shortness of breath. +3 edema to bilat lower ext. Dressings to bilat lower extremities-toes included-toes on left foot appear discolored under dressing with blisters. Plan of care discussed for this shift to include HS meds/fluid restriction/pain control/calling for questions/concerns. Verbalizes understanding/denies needs. Call light in reach. Will monitor.
--- NOTE | 2020-08-27 21:03 | NUR ---
GILBERT Lorenzo notified pressley cath draining sudarshan/blood tinged urine with several blood clots present. Appears to be draining well-has had 350mls out since shift change/150mls out since this nurse has been at bedside. Will continue to monitor/assess output and report any new changes.
[2020-08-28] VITALS (7 sets, daily range): BP systolic 91–103; BP diastolic 62–73; PULSE 83–88; TEMP 97.3–98
--- NOTE | 2020-08-28 04:12 | NUR ---
Sitting up in bed watching TV. Requested pain medication for bilat lower extremity pain described as constant thorbbing-rating pain 8/10 on pain scale. Oxycodone given per dr order. Denies any other c/o at this time. Call light in reach. Will monitor.
--- NOTE | 2020-08-28 05:45 | NUR ---
Rested well this shift after receiving oxycodone x2 for bilat lower extremity pain. Dressing to bilat lower extremity CDI with sedrick bandages for edema. 3+edema noted to bilat lower extremities. Denies nausea/shortness of breath. VS remained stable. Denies current needs. Call light in reach. Will monitor.
[2020-08-28 06:25] LABS: BASO # 0.1 (0.0-0.2); BASO % 0.8 % (0.0-2.0); EOS # 0.2 (0.0-0.7); EOS % 2.4 % (0-4.0); GRAN # 6.3 (1.4-6.5); GRAN % 66.6 % (42.2-75.2); HEMATOCRIT 42.3 % (42.0-52.0); HEMOGLOBIN 13.1 g/dl (13.5-18.0); LYMPH # 1.6 (1.2-3.4); LYMPH % 16.4 % (20.0-51.0); MEAN CELL VOLUME 87 fl (80.0-100.0); MEAN CORPUSCULAR HEMOGLOBIN 27 pg (27.0-31.0); MEAN CORPUSCULAR HGB CONC 31 g/dl (33.0-37.0); MEAN PLATELET VOLUME 11.9 fl (7.4-10.4); MONO # 1.3 (0.1-0.6); MONO % 13.4 % (1.7-9.3); PLATELET COUNT 192 K/mm3 (130-400); RED BLOOD COUNT 4.87 M/mm3 (4.20-5.60); REDCELL DISTRIBUTION WIDTH-CV 16.8 % (11.5-14.5)
--- NOTE | 2020-08-28 06:41 | NUR ---
Received report from ABDIRASHID Calle. Pt lying in bed watching tv, denies needs. Call light in reach.
[2020-08-28 06:42] LABS: ALBUMIN 3.4 gm/dL (3.5-5.0); BILIRUBIN,TOTAL 2.9 mg/dL (0.0-1.0); CALCIUM 8.8 mg/dL (8.4-10.2); CREATININE, serum 1.81 (0.66-1.25); MAGNESIUM 1.7 mg/dL (1.6-2.3); POTASSIUM 3.9 mmol/L (3.4-5.0); TOTAL PROTEIN 7.1 gm/dL (6.4-8.2)
--- NOTE | 2020-08-28 07:55 | NUR ---
Shift assessment complete. Pt sitting up on side of bed. Urinal emptied of sudarshan urine. Pt A&Ox4. Heart RRR. Lungs CTA. Dressings/sedrick wraps to bilateral lower extremities CDI w/3+ edema to BLE. Reports pain 8/10 to toes bilaterally, states this is tolerable and no medication needed at this time. Continuing to monitor.
--- NOTE | 2020-08-28 11:13 | NUR ---
Pt noted to have bright red discharge from penis. notified and urology consult ordered, heparin and aspirin placed on hold. notified of consult, states will come see pt later today.
--- NOTE | 2020-08-29 00:26 | NUR ---
Shift assessment completed. Patient alert and oriented. Patient reports some pain to his bilateral lower legs upon gets up and walking. Denies pain while at rest. Blood-tinged urine with a few clots noted in the toilet. Patient denies pain or discomfort upon urination. All scheduled meds given per MAR. Call light within reach. Will continue to monitor.
[2020-08-29 04:11] VITALS: BP 96/54; PULSE 87; TEMP 97.2
[2020-08-29 06:46] LABS: BASO # 0.1 (0.0-0.2); BASO % 1.2 % (0.0-2.0); EOS # 0.2 (0.0-0.7); EOS % 2.7 % (0-4.0); GRAN # 4.8 (1.4-6.5); GRAN % 61.8 % (42.2-75.2); HEMATOCRIT 41.7 % (42.0-52.0); HEMOGLOBIN 12.9 g/dl (13.5-18.0); LYMPH # 1.6 (1.2-3.4); LYMPH % 20.4 % (20.0-51.0); MEAN CELL VOLUME 86 fl (80.0-100.0); MEAN CORPUSCULAR HEMOGLOBIN 26 pg (27.0-31.0); MEAN CORPUSCULAR HGB CONC 31 g/dl (33.0-37.0); MEAN PLATELET VOLUME 12.2 fl (7.4-10.4); MONO % 13.5 % (1.7-9.3); PLATELET COUNT 197 K/mm3 (130-400); RED BLOOD COUNT 4.88 M/mm3 (4.20-5.60); REDCELL DISTRIBUTION WIDTH-CV 16.6 % (11.5-14.5)
[2020-08-29 06:50] LABS: CALCIUM 8.9 mg/dL (8.4-10.2); CREATININE, serum 1.76 (0.66-1.25); POTASSIUM 3.9 mmol/L (3.4-5.0)
[2020-08-29 08:05] VITALS: BP 121/85; PULSE 100; TEMP 97.4
--- NOTE | 2020-08-29 09:33 | NUR ---
Assessment completed, alert/oriented, vital signs stable, reports pain is controlled at this time, taking oxycodone 1-2 times per day for pain in his legs and feet, he is still having hematuria and is scheduled for cystoscopy today, he has signed consent, heparin on hold, persistent 2-3+ edema to BLE, wound dressed and stable/ dressing C/D/I at this time and last changed on 08/26 by myself, heart RRR/ SR with PAC on tele, denies SOA at rest, lungs CTA/ diminished, blood sugars in control, US here to do renal US, he denies other needs at this time
--- NOTE | 2020-08-29 10:01 | NUR ---
Initial visit; Patient states he doesn't really know how he is doing but said although he isn't really hinduism [employer] could keep him in her prayers. [employer] wished him well and encouraged him to speak with his Physician about his health issues.
[2020-08-29 13:31] VITALS: BP 118/74; PULSE 89; TEMP 97.8
[2020-08-29 16:30] VITALS: BP 108/72; PULSE 91; TEMP 98
[2020-08-29 20:02] VITALS: BP 115/68; PULSE 88; TEMP 97.8
[2020-08-29 23:05] VITALS: BP 117/75; PULSE 94; TEMP 97.7
--- NOTE | 2020-08-30 02:42 | NUR ---
PT CALLED NURSE TO REQUEST PAIN MEDICATION FOR LOWER EXTREMITIES. PT REPORTS PAIN 10/14. MEDICATION ADMINISTERED ORDERED. NO ADDITIONAL NEEDS EXPRESSED AT THIS TIME. CALL LIGHT WITHIN REACH.
[2020-08-30 04:30] VITALS: BP 90/62; PULSE 86; TEMP 97.5
--- NOTE | 2020-08-30 07:24 | NUR ---
Patient lying awake in bed at this time. Patient denies any pain, discomfort, or needs at this time. Will continue to monitor. Call light in reach.
[2020-08-30 07:54] VITALS: BP 113/68; PULSE 89; TEMP 97.6
[2020-08-30 09:46] LABS: ALBUMIN 3.3 gm/dL (3.5-5.0); CALCIUM 8.9 mg/dL (8.4-10.2); CREATININE, serum 1.71 (0.66-1.25); PHOSPHOROUS 3.7 mg/dL (2.5-4.5); POTASSIUM 3.8 mmol/L (3.4-5.0)
--- NOTE | 2020-08-30 10:46 | NUR ---
SW attended clinical rounds. They are monitoring his kidney fuction. SW followed up with the patient about his d/c plan. The patient states that his is back home and that he still plans on returning back home with her and [facility] upon discharge. *Discharge plan: home with and home health*
[2020-08-30 11:28] VITALS: BP 100/72; PULSE 87; TEMP 97.9
--- NOTE | 2020-08-30 15:58 | NUR ---
Scheduled medications given. Assessment preformed. Patient C/O pain rated an 8/10 in his lower extremities. PRN Roxycodone given. Patient states that this has helped reduce the pain to a 4/10. Bumex drip restarted. Bed bath given. Patient continues to be on a 1500 ml fluid restrict and low sodium diet. Patient denies any further discomfort, needs, or SOA at this time. Will continue to monitor. Call light in reach.
[2020-08-30 16:28] VITALS: BP 104/61; PULSE 87; TEMP 98
--- NOTE | 2020-08-30 16:41 | NUR ---
Dressing change performed on patient's BLE. No adherent gauze, gauze wrap, and sedrick bandage used. Patient has Stage 3 ulcers on 2nd and 3rd toes on left foot. Stage 1 on top of left foot. Redness is located on patients shins bilaterally, no open wounds noted. Stage 1 located on patients right ankle. IV dressing changed. Patient denies any further discomfort or needs at this time. Will continue to monitor. Call light in reach.
[2020-08-30 19:59] VITALS: BP 110/73; PULSE 91; TEMP 98
--- NOTE | 2020-08-31 00:25 | NUR ---
Shift assessment completed. Patient alert and oriented. Patient states he is feeling better. Patient denies any leg pain or discomfort at this time. Denies SOB,N/V, dizziness, or headache. All scheduled meds given per MAR. Call light within reach. Patient denies any needs.
[2020-08-31 00:35] VITALS: BP 96/60; PULSE 59; TEMP 97.6
[2020-08-31 04:01] VITALS: BP 96/63; PULSE 82; TEMP 97.7
[2020-08-31 06:57] LABS: BASO # 0.1 (0.0-0.2); EOS # 0.2 (0.0-0.7); EOS % 2.4 % (0-4.0); GRAN # 4.6 (1.4-6.5); GRAN % 64.4 % (42.2-75.2); HEMATOCRIT 40.4 % (42.0-52.0); HEMOGLOBIN 12.7 g/dl (13.5-18.0); LYMPH # 1.3 (1.2-3.4); LYMPH % 17.4 % (20.0-51.0); MEAN CELL VOLUME 87 fl (80.0-100.0); MEAN CORPUSCULAR HEMOGLOBIN 27 pg (27.0-31.0); MEAN CORPUSCULAR HGB CONC 31 g/dl (33.0-37.0); MEAN PLATELET VOLUME 12.3 fl (7.4-10.4); MONO % 14.5 % (1.7-9.3); PLATELET COUNT 191 K/mm3 (130-400); RED BLOOD COUNT 4.66 M/mm3 (4.20-5.60); REDCELL DISTRIBUTION WIDTH-CV 16.7 % (11.5-14.5)
--- NOTE | 2020-08-31 07:01 | NUR ---
Patient sitting up on the side of the bed at this time. Bumex gtt running as ordered. Patient denies any pain, discomfort, or further needs at this time. Will continue to monitor. Call ligt in reach.
[2020-08-31 07:14] LABS: CALCIUM 8.8 mg/dL (8.4-10.2); CREATININE, serum 1.58 (0.66-1.25); MAGNESIUM 1.8 mg/dL (1.6-2.3); POTASSIUM 3.4 mmol/L (3.4-5.0)
[2020-08-31 07:27] VITALS: BP 114/74; PULSE 90; TEMP 98.8
[2020-08-31 11:28] VITALS: BP 106/69; PULSE 88; TEMP 97.7
--- NOTE | 2020-08-31 14:56 | NUR ---
Scheduled medication given, assessment performed. Patient given a PRN Roxycodone for pain rated 7/10 in BLE. Patient denies any other pain, discomfort, or needs at this time. Bumex drip running at 3ml/hr. New IV started in left forearm. Will continue to monitor. VSS. Patient continues to be on a 1500 ml per day fluid restrict. Calll light in reach.
[2020-08-31 16:31] VITALS: BP 106/72; PULSE 90; TEMP 97.9
--- NOTE | 2020-08-31 16:53 | NUR ---
Dressing change performed on BLE. Stage 3 wounds located on 2nd and 3rd toes of left foot. Stage 1 located on the top of left foot. Cellulitis located on the shins bilaterally. Stage 1 located of left ankle. Dressed with non adherent gauze, gauze wrap, and sedrick bandage. Patient denies any further needs at this time. Will continue to monitor. Call light in reach.
[2020-08-31 19:28] VITALS: BP 113/66; PULSE 92; TEMP 97.7
--- NOTE | 2020-08-31 23:56 | NUR ---
Patient assessed around 2130. Alert and oriented, and able to make needs knwon. Requested pain medication for level 8 pain to BLE around 2300, and given PRN Roxicodone for pain. Peripheral IV to right forearm with bumex drip running per orders. Emptied 650 mls for dark yellow, clear urine. States that his legs do not feel as tight and believes it is working. Patient denies SOB and dyspnea. LS CTA in upper lobes, diminished in lower. Respirations even and unlabored. HRR. Telemetry in place. Capillary refill less than 3 seconds. Non-tenting skin turgor. Abdomen soft and non-tender. 3+ edema BLE. Dressings to BLE are CDI. Voices no further questions, needs, or concerns at this time. Resting in bed with call light within reach.
[2020-09-01] VITALS (7 sets, daily range): BP systolic 96–110; BP diastolic 60–75; PULSE 85–97; TEMP 97.6–98.5
--- NOTE | 2020-09-01 05:23 | NUR ---
Patient received PRN Roxicodone once this shift as requested for pain. Has been resting in bed with call light within reach. Has voiced no further questions, needs, or concerns at this time. Continues on Bumex drip per orders. Has been using bedside urinal.
[2020-09-01 06:45] LABS: BASO # 0.1 (0.0-0.2); EOS # 0.2 (0.0-0.7); GRAN # 5.1 (1.4-6.5); GRAN % 64.2 % (42.2-75.2); HEMATOCRIT 41.1 % (42.0-52.0); HEMOGLOBIN 12.9 g/dl (13.5-18.0); LYMPH # 1.3 (1.2-3.4); LYMPH % 16.2 % (20.0-51.0); MEAN CELL VOLUME 84 fl (80.0-100.0); MEAN CORPUSCULAR HEMOGLOBIN 26 pg (27.0-31.0); MEAN CORPUSCULAR HGB CONC 31 g/dl (33.0-37.0); MEAN PLATELET VOLUME 11.9 fl (7.4-10.4); MONO # 1.3 (0.1-0.6); MONO % 16.1 % (1.7-9.3); PLATELET COUNT 206 K/mm3 (130-400); RED BLOOD COUNT 4.88 M/mm3 (4.20-5.60); REDCELL DISTRIBUTION WIDTH-CV 16.7 % (11.5-14.5)
[2020-09-01 07:03] LABS: ALBUMIN 3.3 gm/dL (3.5-5.0); BILIRUBIN,TOTAL 2.6 mg/dL (0.0-1.0); CREATININE, serum 1.56 (0.66-1.25); POTASSIUM 3.2 mmol/L (3.4-5.0); TOTAL PROTEIN 6.9 gm/dL (6.4-8.2)
--- NOTE | 2020-09-01 07:41 | NUR ---
Patient sitting on the side of bed eating breakfast at this time. Patient C/O pain rated a 7/10 on his BLE. Describes it as aching. Patient denies any further discomfort, SOA, or further needs at this time. Will continue to monitor. Call light in reach. Bumex Drip running at 3 ml/hr.
--- NOTE | 2020-09-01 14:59 | NUR ---
The discharge disposition is home with spouse with [facility].
--- NOTE | 2020-09-01 18:50 | NUR ---
Scheduled medications given. Assessments preformed.
--- NOTE | 2020-09-02 03:20 | NUR ---
SCHEDULED MEDICATIONS ADMINISTERED ORDERED. SHIFT ASSESMENT COMPLETED. PT REPORTS NO ADDITIONAL NEEDS AT THIS TIME. CALL LIGHT WITHIN REACH.
[2020-09-02 04:47] VITALS: BP 109/70; PULSE 89; TEMP 97.7
--- NOTE | 2020-09-02 06:14 | NUR ---
PT HAD UNEVENTFUL NIGHT, SLEPT MAJORITY OF THE NIGHT. 02 ROOM AIR. PT CURRENTLY RECORDING OVER 650 OUTPUT FOR THE NIGHT. BUMEX DRIP CURRENTLY INFUSING AT 3ML/HR VIA LEFT FOREARM INT. PT'S FEET ELEVATED, CALL LIGHT WITHIN REACH. ALL BELONGINGS WITHIN REACH.
[2020-09-02 07:37] VITALS: BP 109/76; PULSE 88; TEMP 98.8
[2020-09-02 08:09] LABS: BASO # 0.1 (0.0-0.2); BASO % 1.1 % (0.0-2.0); EOS # 0.2 (0.0-0.7); EOS % 2.7 % (0-4.0); GRAN % 63.4 % (42.2-75.2); HEMATOCRIT 42.8 % (42.0-52.0); HEMOGLOBIN 13.7 g/dl (13.5-18.0); LYMPH # 1.4 (1.2-3.4); LYMPH % 17.1 % (20.0-51.0); MEAN CELL VOLUME 85 fl (80.0-100.0); MEAN CORPUSCULAR HEMOGLOBIN 27 pg (27.0-31.0); MEAN CORPUSCULAR HGB CONC 32 g/dl (33.0-37.0); MONO # 1.2 (0.1-0.6); MONO % 15.3 % (1.7-9.3); PLATELET COUNT 205 K/mm3 (130-400); RED BLOOD COUNT 5.05 M/mm3 (4.20-5.60); REDCELL DISTRIBUTION WIDTH-CV 16.9 % (11.5-14.5)
[2020-09-02 08:17] LABS: CALCIUM 8.9 mg/dL (8.4-10.2); CREATININE, serum 1.49 (0.66-1.25); MAGNESIUM 1.9 mg/dL (1.6-2.3); POTASSIUM 3.4 mmol/L (3.4-5.0)
--- NOTE | 2020-09-02 09:00 | NUR ---
Shift assessment complete. Resting in bed. A&Ox4. Denies SOA. Reports pain 7/10 to bilateral feet, roxicodone given per orders. Heart RRR. Lungs CTA. BLE remain edematous, 3+. Redness to bilateral shins w/ blisters to bilateral feet. Dressings CDI. Reports some intermittent nausea this morning, declines medication at this time. Continuing to monitor.
[2020-09-02 11:27] VITALS: BP 116/71; PULSE 88; TEMP 97.7
[2020-09-02 16:36] VITALS: BP 101/69; PULSE 85; TEMP 98
[2020-09-02 20:40] VITALS: BP 106/67; PULSE 83; TEMP 98.5
[2020-09-03 01:16] VITALS: BP 100/72; PULSE 88; TEMP 98.7
[2020-09-03 07:20] VITALS: BP 103/55; PULSE 84; TEMP 97.6
[2020-09-03 07:31] LABS: CALCIUM 9.1 mg/dL (8.4-10.2); CREATININE, serum 1.45 (0.66-1.25); POTASSIUM 3.3 mmol/L (3.4-5.0)
--- NOTE | 2020-09-03 08:30 | NUR ---
Shift assessment complete. Lying in bed watching tv. A&Ox4. Heart RRR. Lungs CTA. 3+ edema and open blisters over BLE. Denies needs. Call light in reach.
[2020-09-03] MEDS ORDERED: DOXYCYCLINE 10100 MG PO (08:57)
[2020-09-03] MEDS ORDERED: MAG-OX 400400 MG/TAB PO (08:59)
[2020-09-03] MEDS ORDERED: BUMEX 1MG TA1 MG/TA1 PO (11:09)
[2020-09-03] MEDS ORDERED: ZAROXOLYN 2.52.5 MG PO (11:10)
--- NOTE | 2020-09-03 12:25 | NUR ---
Discharge instructions discussed w/pt and all questions answered. IV to left AC removed, tip intact. Pt taken out to ride via wheelchair w/all belongings.
--- NOTE | 2020-09-03 13:38 | NUR ---
SB informed that patient would be discharging on this day 09/03/2020. SB faxed DC orders to [facility], placed a call to agency as well to inform about patient discharge.
== END 2020-09-03 12:26 | disposition home health service (06) | DRG 280 ==
LOC: COL.ER 17:10 → MEDICAL 23:00
PROVIDERS: Hospitalist; Nurse Practitioner Family; Physician Assistant; Urology; ADMIT Student in an Organized Health Care Education/Training Program
PROC: 0TJB8ZZ Inspection of Bladder, Via Natural or Artificial Opening Endoscopic (ICD-10-PCS; principal; 2020-08-29 16:00)
DX: I13.0 Hypertensive heart and chronic kidney disease with heart failure and stage 1 through stage 4 chronic kidney disease, or unspecified chronic kidney disease (principal); I50.23 Acute on chronic systolic (congestive) heart failure; I21.4 Non-ST elevation (NSTEMI) myocardial infarction; N17.9 Acute kidney failure, unspecified; E87.1 Hypo-osmolality and hyponatremia; Z68.42 Body mass index [BMI] 45.0-49.9, adult; E87.3 Alkalosis; I42.0 Dilated cardiomyopathy; I25.5 Ischemic cardiomyopathy; I27.20 Pulmonary hypertension, unspecified; E87.5 Hyperkalemia; E11.621 Type 2 diabetes mellitus with foot ulcer; E11.22 Type 2 diabetes mellitus with diabetic chronic kidney disease; R53.81 Other malaise; E66.01 Morbid (severe) obesity due to excess calories; E83.42 Hypomagnesemia; R31.0 Gross hematuria; N40.0 Benign prostatic hyperplasia without lower urinary tract symptoms; D64.9 Anemia, unspecified; I45.81 Long QT syndrome; Z79.899 Other long term (current) drug therapy; Z86.73 Personal history of transient ischemic attack (TIA), and cerebral infarction without residual deficits
CPT/HCPCS: OP; 99232-AI; 99233-AI; 99239; C1769; G0378; J1644; J1815; J1940; J3475